=== PATIENT | male | born 1955 | race Caucasian/White ===

== ENCOUNTER 2019-01-27 16:27 | Observation (INO) | payer MEDICAID ==
[2019-01-27] MEDS ORDERED: Sodium Chloride 0.9% 10 ML Syringe FLUSH PRN (16:42)
[2019-01-27] MEDS: Sodium Chloride 0.9% 1,000 ML IV SCH (17:28)
[2019-01-27] MEDS ORDERED: ClonazePAM 0.5 MG Tab PO PRN (18:04)
[2019-01-27] MEDS: Insulin Aspart 100 Units/ML 3 ML Pen SUBCUT SCH ×2 (18:15→22:08)
[2019-01-27] MEDS ORDERED: Insulin Glargine,Human Rec. Analog 100 Units/ML 3 ML Pen SUBCUT ONE (21:00)
[2019-01-27] MEDS ORDERED: Metoprolol Tartrate 50 MG Tab PO SCH (21:00)
[2019-01-27] MEDS ORDERED: Metoprolol Tartrate 50 MG Tab PO ONE (21:52)
[2019-01-28] MEDS: Sodium Chloride 0.9% 1,000 ML IV SCH ×3 (00:56→14:46)
[2019-01-28] MEDS: Insulin Aspart 100 Units/ML 3 ML Pen SUBCUT SCH ×4 (07:49→20:49)
[2019-01-28] MEDS ORDERED: Iron Polysaccharides Complex 150 MG Cap PO SCH (08:00)
[2019-01-28 08:02] LABS: ANION GAP 11.1 mmol/L (5-15); CHLORIDE,CL 97 mmol/L (98-115); SODIUM,NA 135 mmol/L (136-145)
[2019-01-28] MEDS ORDERED: Ascorbic Acid 500 MG Tab PO SCH (09:00)
[2019-01-28] MEDS ORDERED: Cetirizine 10 MG Tab PO SCH (09:00)
[2019-01-28] MEDS ORDERED: Multivitamins with Minerals/Iron/Folic Acid/Lycopene Tab PO SCH (09:00)
[2019-01-28] MEDS ORDERED: Losartan 50 MG Tab PO SCH (09:00)
--- NOTE | 2019-01-28 11:54 | PCM.PN ---
- General Info Date of Service: 01/28/19 Functional Status: Reports: Pain Controlled - Review of Systems General: Reports: No Symptoms HEENT: Reports: No Symptoms Pulmonary: Reports: No Symptoms Cardiovascular: Reports: No Symptoms Gastrointestinal: Denies: Abdominal Pain, Constipation, Difficulty Swallowing Genitourinary: Reports: Incontinence, Other (freq urination) Skin: Reports: Dryness Neurological: Denies: Confusion Psychiatric: Reports: No Symptoms - Patient Data Vitals - Most Recent: Last Vital Signs Temp 97.0 F 01/28/19 06:54 Pulse 65 01/28/19 06:54 Resp 16 01/28/19 06:54 BP 99/63 01/28/19 06:54 Pulse Ox 97 01/28/19 06:55 Weight - Most Recent: 232 lb 7 oz I&O - Last 24 Hours: Intake & Output 01/27/19 01/28/19 01/28/19 22:59 06:59 14:59 Intake Total 660 2255 Balance 660 2255 Lab Results Last 24 Hours: Laboratory Results - last 24 hr 01/27/19 01/27/19 01/27/19 Range/Units 16:55 18:03 21:09 WBC (5.00-10.00) 10^3/uL RBC (4.50-6.00) 10^6/uL Hgb (13.0-17.0) g/dL Hct (40.0-52.0) % MCV (82.0-92.0) fL MCH (27.0-31.0) pg MCHC (32.0-36.0) g/dL RDW (11.5-14.5) % Plt Count (150-400) 10^3/uL MPV (7.4-10.4) fL Immature Gran % (Auto) (0.0-5.0) % Neut % (Auto) (50.0-70.0) % Lymph % (Auto) (20.0-40.0) % [place] % (Auto) (2.0-8.0) % Eos % (Auto) (1.0-3.0) % Baso % (Auto) (0.0-1.0) % Immature Gran # (Auto) (0.00-0.50) 10^3/uL Neut # (Auto) (2.50-7.00) 10^3/uL Lymph # (Auto) (1.00-4.00) 10^3/uL [place] # (Auto) (0.10-0.80) 10^3/uL Eos # (Auto) (0.10-0.30) 10^3/uL Baso # (Auto) (0.00-0.10) 10^3/uL Sodium (136-145) mmol/L Potassium (3.3-5.3) mmol/L Chloride (98-115) mmol/L Carbon Dioxide (21.0-32.0) mmol/L Anion Gap (5-15) mmol/L BUN (6-25) mg/dL Creatinine (0.51-1.17) mg/dL Est Cr Clr Drug Dosing mL/min Estimated GFR (MDRD) mL/min Glucose (75 - 99) mg/dL POC Glucose 368 H 321 H 284 H (74-106) mg/dl Calcium (8.7-10.3) mg/dL Total Bilirubin (0.2-1.0) mg/dL AST (15-37) U/L ALT (12-78) U/L Alkaline Phosphatase (46-116) IU/L Total Protein (6.4-8.2) g/dL Albumin (3.00-4.80) g/dL 01/28/19 01/28/19 01/28/19 Range/Units 07:20 07:20 07:43 WBC 8.48 (5.00-10.00) 10^3/uL RBC 4.16 L (4.50-6.00) 10^6/uL Hgb 13.8 (13.0-17.0) g/dL Hct 38.5 L (40.0-52.0) % MCV 92.5 H (82.0-92.0) fL MCH 33.2 H (27.0-31.0) pg MCHC 35.8 (32.0-36.0) g/dL RDW 12.5 (11.5-14.5) % Plt Count 164 (150-400) 10^3/uL MPV 11.8 H (7.4-10.4) fL Immature Gran % (Auto) 0.1 (0.0-5.0) % Neut % (Auto) 60.4 (50.0-70.0) % Lymph % (Auto) 28.9 (20.0-40.0) % [place] % (Auto) 7.4 (2.0-8.0) % Eos % (Auto) 2.6 (1.0-3.0) % Baso % (Auto) 0.6 (0.0-1.0) % Immature Gran # (Auto) 0.01 (0.00-0.50) 10^3/uL Neut # (Auto) 5.12 (2.50-7.00) 10^3/uL Lymph # (Auto) 2.45 (1.00-4.00) 10^3/uL [place] # (Auto) 0.63 (0.10-0.80) 10^3/uL Eos # (Auto) 0.22 (0.10-0.30) 10^3/uL Baso # (Auto) 0.05 (0.00-0.10) 10^3/uL Sodium 135 L (136-145) mmol/L Potassium 3.3 (3.3-5.3) mmol/L Chloride 97 L (98-115) mmol/L Carbon Dioxide 30.2 (21.0-32.0) mmol/L Anion Gap 11.1 (5-15) mmol/L BUN 16 (6-25) mg/dL Creatinine 1.00 (0.51-1.17) mg/dL Est Cr Clr Drug Dosing 77.57 mL/min Estimated GFR (MDRD) > 60 mL/min Glucose 337 H (75 - 99) mg/dL POC Glucose 306 H (74-106) mg/dl Calcium 8.6 L (8.7-10.3) mg/dL Total Bilirubin 1.3 H (0.2-1.0) mg/dL AST 260 H (15-37) U/L ALT 275 H (12-78) U/L Alkaline Phosphatase 682 H (46-116) IU/L Total Protein 6.2 L (6.4-8.2) g/dL Albumin 2.78 L (3.00-4.80) g/dL Med Orders - Current: Current Medications Ascorbic Acid (Vitamin C) 500 mg PO DAILY [facility] Last Admin: 01/28/19 09:10 Dose: 500 mg Cetirizine HCl (Zyrtec) 10 mg PO DAILY [facility] Last Admin: 01/28/19 09:10 Dose: 10 mg Clonazepam (Klonopin) 0.25 mg PO BID PRN PRN Reason: Anxiety Sodium Chloride (Normal Saline) 1,000 mls @ 150 mls/hr IV ASDIRECTED [facility] Last Admin: 01/28/19 07:48 Dose: 150 mls/hr Insulin Aspart (Novolog) 0 unit SUBCUT WITHMEALSANDBED [facility]; Protocol Last Admin: 01/28/19 07:49 Dose: 4 units Losartan Potassium (Cozaar) 100 mg PO DAILY [facility] Metoprolol Tartrate (Lopressor) 100 mg PO BID [facility] Last Admin: 01/27/19 22:05 Dose: Not Given Multivitamins/Minerals (Centrum) 1 tab PO DAILY [facility] Last Admin: 01/28/19 09:10 Dose: 1 tab Polysaccharide Iron Complex (Ferrex 150) 150 mg PO DAILY@0800 [facility] Last Admin: 01/28/19 07:48 Dose: 150 mg Sodium Chloride (Saline Flush) 10 ml FLUSH Q8HR PRN PRN Reason: keep vein open Discontinued Medications Insulin Glargine (Lantus Solostar) 20 units SUBCUT ONETIME ONE Stop: 01/27/19 21:01 Last Admin: 01/27/19 22:07 Dose: 20 units Metoprolol Tartrate (Lopressor) 50 mg PO ONETIME ONE Stop: 01/27/19 21:53 Last Admin: 01/27/19 22:09 Dose: 50 mg - Exam General: Alert, Oriented Neck: Supple Lungs: Clear to Auscultation, Normal Respiratory Effort Cardiovascular: Regular Rate, Regular Rhythm GI/Abdominal Exam: Normal Bowel Sounds, Other (large body habitus ) (Male) Exam: Deferred Extremities: No: Pedal Edema Neurological: No New Focal Deficit Psy/Mental Status: Alert, Normal Affect, Normal Mood - Problem List Review Problem List Initiated/Reviewed/Updated: Yes - Plan Plan:: history summary 63 y/o gentleman was admitted January 27 by Franklin Armendariz from [facility] as patient had concerns regarding excessive avoiding/freq urination and ~ 40 wt loss over past 4 months. Patient admits to significant nocturia along with terminal dribbling incontinent of urine at times. At the time of exam he denied any abdominal pain or diarrhea, CP or SOB. he was admitted for IV fluids , glucose correction and further work up. pertinent clinic workup/findings --Urinalysis no infection however glucosura >500. --Bladder US unremarkable. --Hemoglobin A1c >14, acutely elevated from previous --Serum glucose, 576 --alkaline phos, 725 --ALT 228, AST 175 --CK 50 --Total biliru 1.6 --trig ~900 primary hospital problems T2DM, uncontrolled LISA, resolved, Liver transamin elevation hypertriglyceridemia, likely 2/2 uncontrolled diabetes HTN hx, acutely low BP disposition/plan --Add amylase, lipase --add indirect bili --holding statins, metformin, ARB --Reduce metoprol to 50mg BID --Lantus 20 units daily (newly added on admission) --Changed to high dose SS correction --CT of abdomen--concern for hepatobiliary etiology --ongoing fluids post CT --Rx consult as patient will likely need Adjunct GLP-1 or other agents as he is far from optimal for his DM--C-peptide pending
[2019-01-28] MEDS ORDERED: Diatrizoate Meglumine/Diatrizoate Sodium 37% 120 ML Bottle PO ONE (16:57)
[2019-01-28] MEDS ORDERED: Iopamidol 755 Mg/ML 100 ML Bottle IV ONE (16:57)
[2019-01-28] MEDS ORDERED: Sodium Chloride 0.9% 50 ML IV SCH (17:00)
--- NOTE | 2019-01-28 18:29 | CT ---
[id number] CT/CT Abdomen Pelvis W IV EXAM: CT Abdomen Pelvis W IV CLINICAL DATA: ELEVATED LIVER FUNCTION TESTS. COMPARISON STUDY: December 2014. FINDINGS: Liver is radiographically unremarkable. Gallbladder has been resected. Dilation of the intra and extrahepatic bile ductal system to the level of the ampulla. In the distal common bile duct at the ampulla there is a 7 x 7 x 8 mm rounded hyperdense structure (series 2 image 72 and series 4 image 53). In the setting of abnormal LFTs, obstructing choledocholithiasis is possible. The pancreas demonstrates moderate to advanced parenchymal atrophy and fatty infiltration. No pancreas duct dilation identified. Spleen, adrenal glands, and kidneys are unremarkable, other than simple renal cortical cysts. Scattered colonic diverticula. No evidence of acute diverticulitis. Appendix is normal. No small bowel obstruction or inflammation. IMPRESSION: Dilation of the biliary ductal system to the level of the ampulla where there is a possible 7 x 7 x 8 mm obstructing choledocholithiasis, described above. ERCP is recommended for further evaluation. Lam Anderson MD 01/28/19 [id number] Thank you for allowing us to participate in the care of your patient.
[2019-01-28] MEDS ORDERED: Sodium Chloride 0.9% 1,000 ML IV SCH (19:15)
--- NOTE | 2019-01-28 20:46 | PCM.DCSUM1 ---
Discharge Summary - Discharge Data Discharge Date: 01/28/19 Discharge Disposition: DC/Tfer to Acute Hospital 02 Condition: Stable - Discharge Plan *PRESCRIPTION DRUG MONITORING PROGRAM REVIEWED*: Not Applicable *COPY OF PRESCRIPTION DRUG MONITORING REPORT IN PATIENT KARLA: Not Applicable Home Medications: Home Meds Ascorbate Calcium [Vitamin C] 500 mg PO DAILY 01/27/19 [History] Aspirin [Halfprin] 81 mg PO DAILY 01/27/19 [History] Cetirizine [ZyrTEC] 10 mg PO DAILY 01/27/19 [History] Chlorthalidone 25 mg PO DAILY 01/27/19 [History] ClonazePAM [KlonoPIN] 0.25 mg PO BID PRN 01/27/19 [History] Fenofibrate 160 mg PO DAILY 01/27/19 [History] Iron Polysaccharides Complex [Ferrex 150] 150 mg PO DAILY@0800 01/27/19 [History ] Losartan [Cozaar] 100 mg PO DAILY 01/27/19 [History] Metoprolol Tartrate [Lopressor] 100 mg PO BID 01/27/19 [History] Multivitamin with Minerals [Multiple Vitamin] 1 tab PO DAILY 01/27/19 [History] Rosuvastatin [Crestor] 10 mg PO BEDTIME 01/27/19 [History] Ubidecarenone [Co Q-10] 50 mg PO DAILY 01/27/19 [History] metFORMIN [Glucophage] 1,000 mg PO BIDMEALS 01/27/19 [History] - Discharge Summary/Plan Comment DC Time >30 min.: Yes Discharge Summary/Plan Comment: Date of admission: 01/27/19 Date of discharge: 01/28/19 Admitting diagnosis: Primary: LISA, [id number], Transaminitis, HTN Secondary: Hypertriglyceridemia, Generalized anxiety disorder, Recurrent major depressive disorder-mild, History of tubular adenoma, Obesity Final diagnosis: Primary: Choledocholithiasis, Transaminitis, HTN-improving, LISA-resolving, [id number] Secondary: Hypertriglyceridemia, Generalized anxiety disorder, Recurrent major depressive disorder-mild, History of tubular adenoma, Obesity Procedures performed: None Brief history: This is a 63 year old male who initially presented to the [facility] with concerns of urinary frequency, nocturia, dribbling/incontinence along with a 40 pound weight loss in 4 months and uncontrolled blood pressure. He was found to have a glucose of 578, UA negative for infection but positive for >500 glucose, A1c 14.0, Creatinine 1.61, Alk phos 725, AST 175, ALT 228. He was subsequently admitted for further evaluation and treatment of his conditions. Hospital Course: The patient's hospital course went as expected. He was given IV fluids and remained afebrile and hemodynamically stable. He reported minimal RUQ abdominal pain and intermittent diarrhea, but denied any N/V, or constipation. He did not require any pain medications. His fenofibrate, statin, metformin, and ARB were held. He was given lantus daily along with high dose sliding scale novolog insulin. When his kidney function improved he underwent a CT of the abdomen/ pelvis for further evaluation. He was found to have dilation of the biliary ductal system at the level of the ampulla with possible 7 x 7 x 8 mm obstructing choledocholithiasis. He was recommended to have an ERCP. Consulted with Dr. Henry, GI and Dr. Gonzalez, hospitalist, at . Patient was accepted and advised to have clear liquids with nothing by mouth after midnight. He would receive an ERCP in the morning. Transfer/Discharge Labs: Creatinine 1.00 Total bilirubin 1.3 Direct bilirubin 0.9 Alk phos 682 AST 260 ALT 275 Amylase 36 Lipase 216 New medications at discharge: -Lantus 20 units SQ daily -Novolog high dose sliding scale SQ QID New changes to home medications at discharge: -Holding fenofibrate, metformin, losartan, & crestor -Decreased lopressor to 50 mg po BID Regular home medications at discharge: -Co Q10 50 mg po daily -Multivitamin 1 tab po daily -Chlorthalidone 25 mg po daily -Aspirin 81 mg po daily -Ferrex 150 mg po daily -Vitamin C 500 mg po daily -Zyrtec 10 mg po daily -Clonazepam 0.25 mg po BID PRN Condition, Treatment, & Final Disposition: The patient is in stable condition at the time of transfer/discharge. He will be transferred to via [facility] ambulance for further work-up and ERCP in the morning. He was continued on IV fluids, given clear liquids, and morphine 2 mg IV every 1 hour PRN for pain. Patient agreeable with the treatment plan and all questions answered. - General Info Date of Service: 01/28/19 Functional Status: Reports: Pain Controlled - Review of Systems General: Denies: Fever, Chills Pulmonary: Denies: Shortness of Breath Cardiovascular: Denies: Chest Pain, Edema Gastrointestinal: Reports: Abdominal Pain (minimal), Constipation, Diarrhea. Denies: Nausea, Vomiting Skin: Denies: Jaundice - Patient Data Vitals - Most Recent: Last Vital Signs Temp 97.4 F 01/28/19 17:00 Pulse 78 01/28/19 17:00 Resp 18 01/28/19 17:00 BP 146/96 H 01/28/19 17:00 Pulse Ox 96 01/28/19 17:00 Weight - Most Recent: 232 lb 7 oz I&O - Last 24 hours: Intake & Output 01/28/19 01/28/19 01/28/19 06:59 14:59 22:59 Intake Total 2255 1418 Balance 2255 1418 Lab Results - Last 24 hrs: Laboratory Results - last 24 hr 01/27/19 01/28/19 01/28/19 Range/Units 21:09 07:20 07:20 WBC 8.48 (5.00-10.00) 10^3/uL RBC 4.16 L (4.50-6.00) 10^6/uL Hgb 13.8 (13.0-17.0) g/dL Hct 38.5 L (40.0-52.0) % MCV 92.5 H (82.0-92.0) fL MCH 33.2 H (27.0-31.0) pg MCHC 35.8 (32.0-36.0) g/dL RDW 12.5 (11.5-14.5) % Plt Count 164 (150-400) 10^3/uL MPV 11.8 H (7.4-10.4) fL Immature Gran % (Auto) 0.1 (0.0-5.0) % Neut % (Auto) 60.4 (50.0-70.0) % Lymph % (Auto) 28.9 (20.0-40.0) % [place] % (Auto) 7.4 (2.0-8.0) % Eos % (Auto) 2.6 (1.0-3.0) % Baso % (Auto) 0.6 (0.0-1.0) % Immature Gran # (Auto) 0.01 (0.00-0.50) 10^3/uL Neut # (Auto) 5.12 (2.50-7.00) 10^3/uL Lymph # (Auto) 2.45 (1.00-4.00) 10^3/uL [place] # (Auto) 0.63 (0.10-0.80) 10^3/uL Eos # (Auto) 0.22 (0.10-0.30) 10^3/uL Baso # (Auto) 0.05 (0.00-0.10) 10^3/uL Sodium 135 L (136-145) mmol/L Potassium 3.3 (3.3-5.3) mmol/L Chloride 97 L (98-115) mmol/L Carbon Dioxide 30.2 (21.0-32.0) mmol/L Anion Gap 11.1 (5-15) mmol/L BUN 16 (6-25) mg/dL Creatinine 1.00 (0.51-1.17) mg/dL Est Cr Clr Drug Dosing 77.57 mL/min Estimated GFR (MDRD) > 60 mL/min Glucose 337 H (75 - 99) mg/dL POC Glucose 284 H (74-106) mg/dl Calcium 8.6 L (8.7-10.3) mg/dL Total Bilirubin Cancelled Direct Bilirubin (0.0-0.2) mg/dL Indirect Bilirubin mg/dL AST Cancelled ALT Cancelled Alkaline Phosphatase Cancelled Total Protein Cancelled Albumin Cancelled Globulin Albumin/Globulin Ratio Amylase (25-125) U/L Lipase (73-393) U/L 01/28/19 01/28/19 01/28/19 Range/Units 07:20 07:43 12:05 WBC (5.00-10.00) 10^3/uL RBC (4.50-6.00) 10^6/uL Hgb (13.0-17.0) g/dL Hct (40.0-52.0) % MCV (82.0-92.0) fL MCH (27.0-31.0) pg MCHC (32.0-36.0) g/dL RDW (11.5-14.5) % Plt Count (150-400) 10^3/uL MPV (7.4-10.4) fL Immature Gran % (Auto) (0.0-5.0) % Neut % (Auto) (50.0-70.0) % Lymph % (Auto) (20.0-40.0) % [place] % (Auto) (2.0-8.0) % Eos % (Auto) (1.0-3.0) % Baso % (Auto) (0.0-1.0) % Immature Gran # (Auto) (0.00-0.50) 10^3/uL Neut # (Auto) (2.50-7.00) 10^3/uL Lymph # (Auto) (1.00-4.00) 10^3/uL [place] # (Auto) (0.10-0.80) 10^3/uL Eos # (Auto) (0.10-0.30) 10^3/uL Baso # (Auto) (0.00-0.10) 10^3/uL Sodium (136-145) mmol/L Potassium (3.3-5.3) mmol/L Chloride (98-115) mmol/L Carbon Dioxide (21.0-32.0) mmol/L Anion Gap (5-15) mmol/L BUN (6-25) mg/dL Creatinine (0.51-1.17) mg/dL Est Cr Clr Drug Dosing mL/min Estimated GFR (MDRD) mL/min Glucose (75 - 99) mg/dL POC Glucose 306 H 345 H (74-106) mg/dl Calcium (8.7-10.3) mg/dL Total Bilirubin 1.3 H Direct Bilirubin 0.9 H* (0.0-0.2) mg/dL Indirect Bilirubin 0.4 mg/dL AST 260 H ALT 275 H Alkaline Phosphatase 682 H Total Protein 6.2 L Albumin 2.78 L Globulin 3.42 Albumin/Globulin Ratio 0.81 Amylase 36 (25-125) U/L Lipase 216 (73-393) U/L 01/28/19 Range/Units 18:47 WBC (5.00-10.00) 10^3/uL RBC (4.50-6.00) 10^6/uL Hgb (13.0-17.0) g/dL Hct (40.0-52.0) % MCV (82.0-92.0) fL MCH (27.0-31.0) pg MCHC (32.0-36.0) g/dL RDW (11.5-14.5) % Plt Count (150-400) 10^3/uL MPV (7.4-10.4) fL Immature Gran % (Auto) (0.0-5.0) % Neut % (Auto) (50.0-70.0) % Lymph % (Auto) (20.0-40.0) % [place] % (Auto) (2.0-8.0) % Eos % (Auto) (1.0-3.0) % Baso % (Auto) (0.0-1.0) % Immature Gran # (Auto) (0.00-0.50) 10^3/uL Neut # (Auto) (2.50-7.00) 10^3/uL Lymph # (Auto) (1.00-4.00) 10^3/uL [place] # (Auto) (0.10-0.80) 10^3/uL Eos # (Auto) (0.10-0.30) 10^3/uL Baso # (Auto) (0.00-0.10) 10^3/uL Sodium (136-145) mmol/L Potassium (3.3-5.3) mmol/L Chloride (98-115) mmol/L Carbon Dioxide (21.0-32.0) mmol/L Anion Gap (5-15) mmol/L BUN (6-25) mg/dL Creatinine (0.51-1.17) mg/dL Est Cr Clr Drug Dosing mL/min Estimated GFR (MDRD) mL/min Glucose (75 - 99) mg/dL POC Glucose 226 H (74-106) mg/dl Calcium (8.7-10.3) mg/dL Total Bilirubin Direct Bilirubin (0.0-0.2) mg/dL Indirect Bilirubin mg/dL AST ALT Alkaline Phosphatase Total Protein Albumin Globulin Albumin/Globulin Ratio Amylase (25-125) U/L Lipase (73-393) U/L Med Orders - Current: Current Medications Ascorbic Acid (Vitamin C) 500 mg PO DAILY [facility] Last Admin: 01/28/19 09:10 Dose: 500 mg Cetirizine HCl (Zyrtec) 10 mg PO DAILY [facility] Last Admin: 01/28/19 09:10 Dose: 10 mg Clonazepam (Klonopin) 0.25 mg PO BID PRN PRN Reason: Anxiety Sodium Chloride (Normal Saline) 1,000 mls @ 75 mls/hr IV ASDIRECTED [facility] Insulin Aspart (Novolog) 0 unit SUBCUT WITHMEALSANDBED [facility]; Protocol Last Admin: 01/28/19 20:39 Dose: Not Given Insulin Glargine (Lantus Solostar) 20 units SUBCUT DAILY [facility] Losartan Potassium (Cozaar) 100 mg PO DAILY [facility] Metoprolol Tartrate (Lopressor) 50 mg PO BID [facility] Multivitamins/Minerals (Centrum) 1 tab PO DAILY [facility] Last Admin: 01/28/19 09:10 Dose: 1 tab Polysaccharide Iron Complex (Ferrex 150) 150 mg PO DAILY@0800 [facility] Last Admin: 01/28/19 07:48 Dose: 150 mg Sodium Chloride (Saline Flush) 10 ml FLUSH Q8HR PRN PRN Reason: keep vein open Discontinued Medications Diatrizoate Meglum/Diatrizoate Sod (Gastrografin 37%) 120 ml PO ONETIME ONE Stop: 01/28/19 16:58 Last Admin: 01/28/19 17:46 Dose: 30 ml Sodium Chloride (Normal Saline) 1,000 mls @ 150 mls/hr IV ASDIRECTED [facility] Last Admin: 01/28/19 14:46 Dose: 150 mls/hr Sodium Chloride (Normal Saline) 50 mls @ 200 mls/hr IV ASDIRECTED [facility] Last Admin: 01/28/19 17:46 Dose: 200 mls/hr Insulin Glargine (Lantus Solostar) 20 units SUBCUT ONETIME ONE Stop: 01/27/19 21:01 Last Admin: 01/27/19 22:07 Dose: 20 units Iopamidol (Isovue-370 (76%)) 100 ml IV ONETIME ONE Stop: 01/28/19 16:58 Last Admin: 01/28/19 17:46 Dose: 100 ml Metoprolol Tartrate (Lopressor) 100 mg PO BID [facility] Last Admin: 01/27/19 22:05 Dose: Not Given Metoprolol Tartrate (Lopressor) 50 mg PO ONETIME ONE Stop: 01/27/19 21:53 Last Admin: 01/27/19 22:09 Dose: 50 mg - Exam Quality Assessment: Denies: Supplemental Oxygen General: Reports: Alert, Oriented, Cooperative, No Acute Distress HEENT: Denies: Scleral Icterus Lungs: Reports: Clear to Auscultation, Normal Respiratory Effort Cardiovascular: Reports: Regular Rate, Regular Rhythm, No Murmurs GI/Abdominal Exam: Normal Bowel Sounds, Soft, No Mass, Distended (mild), Tender (RUQ) Extremities: No Pedal Edema Skin: Reports: Warm, Dry, Intact, Other (No jaundice) Neurological: Reports: Normal Speech Psy/Mental Status: Reports: Alert, Normal Affect, Normal Mood
[2019-01-28] MEDS ORDERED: Metoprolol Tartrate 50 MG Tab PO SCH (21:00)
[2019-01-28] MEDS ORDERED: Insulin Glargine,Human Rec. Analog 100 Units/ML 3 ML Pen SUBCUT SCH (21:00)
== END 2019-01-28 21:20 ==
LOC: KA.MS 16:27
PROVIDERS: ADMIT Physician Assistant; ATTEND Family Medicine
DX: N17.9 Acute kidney failure, unspecified (principal); E11.9 Type 2 diabetes mellitus without complications; R74.0 Nonspecific elevation of levels of transaminase and lactic acid dehydrogenase [LDH]; I10 Essential (primary) hypertension; E78.1 Pure hyperglyceridemia; F41.1 Generalized anxiety disorder; F32.9 Major depressive disorder, single episode, unspecified; E66.9 Obesity, unspecified; F17.290 Nicotine dependence, other tobacco product, uncomplicated; K80.50 Calculus of bile duct without cholangitis or cholecystitis without obstruction; Z68.34 Body mass index [BMI] 34.0-34.9, adult; Z79.899 Other long term (current) drug therapy; Z79.82 Long term (current) use of aspirin; Z79.84 Long term (current) use of oral hypoglycemic drugs
CPT/HCPCS: 36415; 74177; 80048; 80076; 82150; 82962; 83690; 85025; 96360; 96361; A9270-GY; G0378; J1815-GY; J7030; J7050; Q9963; Q9967

== ENCOUNTER → 2022-03-25 | Day surgery (SDC) | payer MEDICARE, MEDICAID ==
[~2022-03-25] MED LIST: Midazolam 1 MG/ML 2 ML SDV IV ONE; Propofol 200 MG/20 ML SDV IV ONE; Sodium Chloride 0.9% 1,000 ML IV SCH; Sodium Chloride 0.9% 10 ML Syringe FLUSH PRN
== END ==
LOC: KA.SDS 06:00
PROVIDERS: ATTEND Family Medicine
DX: Z12.11 Encounter for screening for malignant neoplasm of colon (principal); D12.6 Benign neoplasm of colon, unspecified; I10 Essential (primary) hypertension; E11.9 Type 2 diabetes mellitus without complications; Z86.010 Personal history of colon polyps; Z79.899 Other long term (current) drug therapy; Z79.82 Long term (current) use of aspirin
CPT/HCPCS: 00812; J2250; J2704

== ENCOUNTER 2024-12-09 14:57 | Emergency (ER) | payer MEDICARE, OTHER ==
[2024-12-09] MEDS ORDERED: Sodium Chloride 0.9% 10 ML Syringe FLUSH PRN (15:18)
[2024-12-09 15:31] LABS: BASOPHILS ABSOLUTE AUTO 0.03 10^3/uL (0.00-0.10); BASOPHILS PERCENT AUTO 0.3 % (0.0-1.0); EOSINOPHILS ABSOLUTE AUTO 0.32 10^3/uL (0.10-0.30); EOSINOPHILS PERCENT AUTO 2.9 % (1.0-3.0); IMMATURE GRAN ABSOLUTE AUTO 0.03 10^3/uL (0.00-0.04); IMMATURE GRAN PERCENT AUTO 0.3 % (0.0-0.4); LYMPHOCYTES ABSOLUTE AUTO 2.44 10^3/uL (1.00-4.00); LYMPHOCYTES PERCENT AUTO 21.9 % (20.0-40.0); MEAN PLATELET VOLUME 10.9 fL (7.4-10.4); MONOCYTES ABSOLUTE AUTO 0.87 10^3/uL (0.10-0.80); MONOCYTES PERCENT AUTO 7.8 % (2.0-8.0); NEUTROPHILS ABSOLUTE AUTO 7.43 10^3/uL (2.50-7.00); NEUTROPHILS PERCENT AUTO 66.8 % (50.0-70.0); PLATELET COUNT,PLT 234 10^3/uL (150-400); RED BLOOD CELL COUNT 5.64 10^6/uL (4.50-6.00); RED CELL DISTRIBUTION WIDTH 14.2 % (11.5-14.5); WHITE BLOOD CELL COUNT,WBC 11.12 10^3/uL (5.00-10.00)
[2024-12-09 15:59] LABS: ALANINE AMINOTRANSFERASE,ALT 52 U/L (14-63); ASPARTATE AMNIOTRANSFERASE,AST 19 U/L (15-37); BILIRUBIN TOTAL 0.5 mg/dL (0.2-1.0); BLOOD UREA NITROGEN,BUN 13 mg/dL (7-18); CARBON DIOXIDE,CO2 28.4 mmol/L (21.0-32.0); CHLORIDE,CL 98 mmol/L (98-107); CREATININE 0.86 mg/dL (0.51-1.17); EST CRCL DRUG DOSING (CG) 83.35 mL/min; GLUCOSE RANDOM 418 mg/dL (70-140); POTASSIUM,K 4.0 mmol/L (3.5-5.1); PROTEIN TOTAL,TP 7.7 g/dL (6.4-8.2); SODIUM,NA 139 mmol/L (136-145)
[2024-12-09 16:00] LABS: ESTIMATED GFR 95 mL/min (>=60)
[2024-12-09 16:28] LABS: BASE EXCESS ARTERIAL,POC -1 mmol/L ((-2)-3); HCO3 ARTERIAL,POC 23.4 mmol/L (21-28); O2 SATURATION ARTERIAL,POC 96.9 % (94-98); PCO2 ARTERIAL,POC 38 mmHg (35-48); PH ARTERIAL,POC 7.40 pH (7.35-7.45); PO2 ARTERIAL,POC 89 mmHg (83-108); TCO2 ARTERIAL,POC 22 mmol/L (22-29)
[2024-12-09 17:57] LABS: APPEARANCE,URINE CLEAR (CLEAR); GLUCOSE,URINE >=1000 mg/dL (NEGATIVE); OCCULT BLOOD,URINE NEGATIVE (NEGATIVE)
[2024-12-09 18:04] LABS: EPITHELIAL CELLS,URINE RARE /LPF
[2024-12-09 18:40] LABS: BLOOD UREA NITROGEN,BUN 13.0 mg/dL (7-18); CARBON DIOXIDE,CO2 28.2 mmol/L (21.0-32.0); CHLORIDE,CL 103.0 mmol/L (98-107); CREATININE 0.8 mg/dL (0.51-1.17); EST CRCL DRUG DOSING (CG) 89.6 mL/min; GLUCOSE RANDOM 347.0 mg/dL (70-140); POTASSIUM,K 4.2 mmol/L (3.5-5.1); SODIUM,NA 142.0 mmol/L (136-145)
[2024-12-09 18:41] LABS: ESTIMATED GFR 97.0 mL/min (>=60)
[2024-12-09] MEDS: Insulin Lispro 100 Unit/ML 3 ML KwikPen SUBCUT ONE (19:50)
[2024-12-09 21:08] VITALS: BP 138/61; PULSE 84
== END 2024-12-09 21:25 | disposition home or self-care (01) ==
LOC: KA.ED 14:57
DX: E11.65 Type 2 diabetes mellitus with hyperglycemia (principal); I10 Essential (primary) hypertension; R79.89 Other specified abnormal findings of blood chemistry; E78.00 Pure hypercholesterolemia, unspecified; Z79.899 Other long term (current) drug therapy; Z79.82 Long term (current) use of aspirin; Z79.84 Long term (current) use of oral hypoglycemic drugs; Z79.4 Long term (current) use of insulin; Z79.890 Hormone replacement therapy; Z90.49 Acquired absence of other specified parts of digestive tract
CPT/HCPCS: 36415; 36600; 80048; 80053; 81001; 82803; 82947; 83605; 84484; 85025; 86140; 96360; 96361; 99285; A9270; J7030; 93010; 99284